=== PATIENT | female | born 1965 | race African-American/Black ===

== ENCOUNTER → 2019-05-22 | Outpatient (CLI) | payer OTHER ==
[2014-12-28 10:32] VITALS: BP 164/79
[~2019-05-22] MED LIST: ALPR1TAB2 PO; CITA20TA9 PO; EMPA25TA PO; HYDR-2769 PO; HYDR12.58 PO; INSU100I13 SQ; INSU100V SQ; INSU100V13 SQ; LISI-338 PO; METF10007 PO; SIMV40TA3 PO; SITA50TA PO
--- NOTE | 2019-05-22 11:35 | KCIC ---
Right lower extremity venous doppler ultrasound History: New onset right lower extremity edema, pain Comparison: None Findings: Multiple grayscale, color, and duplex spectral analysis sonographic images were acquired of the right lower extremity veins to evaluate for the presence of DVT. There is normal phasicity. Normal compression, color-flow, and augmentation is demonstrated from the right common femoral to the popliteal veins. There is normal color flow of the proximal profundal femoris vein. There is normal color flow of segments of the calf veins. Impression: 1. There is no evidence of deep venous thrombosis from the right common femoral to the popliteal veins. Electronically signed by: Joshua Mittal MD (05/22/2019 11:32 AM) [id number]
== END | disposition home or self-care (01) ==
LOC: KCIC US 11:00
PROVIDERS: ATTEND Family Medicine
DX: M79.661 Pain in right lower leg (principal); R60.0 Localized edema
CPT/HCPCS: 93971

== ENCOUNTER → 2020-07-01 | Outpatient (CLI) | payer OTHER ==
[2014-12-28 10:32] VITALS: BP 164/79
[~2020-07-01] MED LIST changes: -INSU100V SQ; +INSU100V6 SQ; +SIMV40TA18 PO; -SIMV40TA3 PO
--- NOTE | 2020-07-01 09:31 | KCIC ---
EXAM: CHEST PA LATERAL, HAND BILAT 3V INDICATION: Reason: Abnormal lung sounds / Spl. Instructions: / History: . TECHNIQUE: PA and lateral views COMPARISON: None FINDINGS: The heart size is normal. The great vessels appear unremarkable. There is no hilar or mediastinal mass. The lungs show mild diffuse pulmonary vascular congestion. No focal infiltrates. There is no pleural effusion or pneumothorax. There are no significant osseous abnormalities. IMPRESSION: Evidence of pulmonary vascular congestion. No focal consolidation of typical pneumonia. PROCEDURE: CHEST PA LATERAL, HAND BILAT 3V STUDY DATE: 07/01/2020 CLINICAL INDICATION / HISTORY: Right CMC joint pain. Evaluate for inflammatory arthropathy.. TECHNIQUE: PA, lateral and oblique views each of the left and right hands. COMPARISON: None FINDINGS: Moderately advanced bilateral left greater than right, metacarpal joint degenerative change with osteophytic spurring and joint space narrowing is present. No fracture or dislocation is identified. The bone density is normal. The joint spaces are otherwise maintained, and there are no erosions to suggest an inflammatory arthropathy. The soft tissues are unremarkable. IMPRESSION: Bilateral first CMC joint degenerative changes. No changes of an inflammatory arthropathy are identified. Electronically signed by: Daniele Gill MD (07/01/2020 9:28 AM) [id number]
== END | disposition home or self-care (01) ==
LOC: KCIC 08:33
PROVIDERS: ATTEND Student in an Organized Health Care Education/Training Program
DX: R06.01 Orthopnea (principal); R76.0 Raised antibody titer; M25.50 Pain in unspecified joint; R09.89 Other specified symptoms and signs involving the circulatory and respiratory systems; M18.9 Osteoarthritis of first carpometacarpal joint, unspecified
CPT/HCPCS: 71046; 73130